=== PATIENT | female | born 1980 | race Caucasian/White ===

== ENCOUNTER 2024-01-22 11:53 | Emergency (ER) | payer OTHER, SELFPAY ==
[2024-01-22 12:02] VITALS: BP 132/56; PULSE 102; TEMP 36.4; O2SAT 99; BMI 22.2
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
[2024-01-22] MEDS: 0.9 % SODIUM CHLORIDE 1,000 ML 1000 ML IV (12:58)
[2024-01-22] MEDS: DIPHENHYDRAMINE HCL 50 MG/ML VIAL 25 MG IV (12:59)
[2024-01-22] MEDS: KETOROLAC TROMETHAMINE 30 MG/ML VIAL IVP (13:00)
[2024-01-22] MEDS: METHYLPREDNISOLONE SOD SUCC PF 125 MG/2 ML VIAL IVP (13:02)
[2024-01-22] MEDS: PROMETHAZINE HCL 12.5 MG in 0.9 % SODIUM CHLORIDE 50 ML 202 MG IV (13:03)
[2024-01-22 13:30] VITALS: BP 107/62; PULSE 90; O2SAT 100
[2024-01-22] MEDS: MORPHINE SULFATE 4 MG/ML VIAL IV (13:36)
== END 2024-01-22 14:43 | disposition home or self-care (01) ==
LOC: ER 15:01
PROVIDERS: Emergency Provider Emergency Medicine
DX: R51.9 Headache, unspecified (principal)
CPT/HCPCS: 96365; 96375; 99284; J1200; J1885; J2250; J2270; J2919